=== PATIENT | female | born 1985 | race Two or more races ===

== ENCOUNTER 2024-11-04 12:34 | Emergency (ER) | payer BC, SELFPAY ==
[2024-11-04 12:54] VITALS: BP 136/93; PULSE 108; RESP 18; TEMP 37.1; O2SAT 99; BMI 25.2
--- NOTE | 2024-11-04 13:07 | EDNOTE_ITS ---
ED Alcohol RME/HPI General Chief Complaint: Alcohol Stated Complaint: wants to detox, heavy drinker Time Seen by Provider: 11/04/24 12:52 Arrival date/time: 11/04/24 12:34 RME / HPI RME / HPI narrative: 38-year-old female patient with significant history of chronic alcoholism, came in evaluation for request of alcohol detoxification. Patient has been on alcohol detoxification center twice, and according to her it does not work because every time she gets out she started drinking again. Patient is drinking tequila and whiskey heavy every day. Last drink few hours ago. Currently patient is not having any symptoms. Is not having any symptoms of withdrawal according to her. She called the alcohol intoxication center and was advised to go to the emergency room for alcohol detoxification. Denies any homicidal or suicidal ideation. Related Data Allergies Allergy/AdvReac Type Severity Reaction Status Date / Time No Known Allergies Allergy Verified 11/04/24 12:40 Review of Systems Review of Systems Narrative Review of Systems: Review of system reviewed and within normal limits except mentioned in HPI ED Exam Narrative Physical exam: VITAL SIGNS: Reviewed. GENERAL APPEARANCE: Alert and interactive, follows commands, no acute distress, HEAD AND FACE: Non-traumatic. ENT: PERRL, pink conjunctivitis, eyelid no trauma, Mucous membrane moist. NECK: Supple, nontender, no nuchal rigidity. CHEST: No tenderness, no crepitus, no paradoxical movement, no retractions. LUNGS: Clear, well ventilated, symmetric, no rales, no wheezing, no ronchi, no stridor, good breath sounds bilaterally. HEART: Regular rate, regular rhythm, no murmur, no gallops. ABDOMEN: Soft, positive bowel sounds, nondistended, no guarding, nontender, no rebound, no masses, RECTAL: Deferred. GENITAL: Deferred. NEUROLOGICAL: Gross motor function intact sensory function intact, Appropriate for age. MUSCULOSKELETAL: low back nontender, full range of motion. EXTREMITIES: Nontender, full range of motion. SKIN: Color pink, dry, no rash, no lacerations, no abrasions, no contusions. LYMPHATICS: Deferred. Course Quality Measures none Vital Signs Vital signs: Vital Signs Temperature 98.8 F 11/04/24 12:54 Pulse Rate 108 H 11/04/24 12:54 Respiratory Rate 18 11/04/24 12:54 Blood Pressure 136/93 H 11/04/24 12:54 Pulse Oximetry (%) 99 11/04/24 12:54 Oxygen Delivery Method Room Air 11/04/24 12:54 Discharge Plan Plan Patient Disposition: HOME (Self Care) Discharge Disposition comment: Stable Problem List Clinical Impression: Alcoholism, chronic Patient/Caregiver Discharge Instructions Discharge Activity: activity as tolerated Education Materials: Alcohol Addiction Additional Instructions: Thank you for the opportunity for serving you today. You are stable for discharged . You are advised to: Follow-up with your PCP in 1 to 2 days Return to ED for worsening of symptoms, alcohol withdrawal symptoms, Increase oral fluids Please try to stop drinking alcohol Print Language: Japanese Stand Alone Forms: [facility] [place] [employer] Award Info., Patient Portal Info Letter Alcohol MDM Narrative MDM Narrative: 38-year-old female patient with significant history of chronic alcoholism, came in evaluation for request of alcohol detoxification. Patient has been on alcohol detoxification center twice, and according to her it does not work because every time she gets out she started drinking again. Patient is drinking tequila and whiskey heavy every day. Last drink few hours ago. Currently patient is not having any symptoms. Is not having any symptoms of withdrawal according to her. She called the alcohol intoxication center and was advised to go to the emergency room for alcohol detoxification. Denies any homicidal or suicidal ideation. Plan of care discussed with the family and I told him that there is no reason for us to admit her because she is not showing any sign of alcohol withdrawal. And we do not usually admit patient for alcohol detoxification. Patient was advised to go to detoxification center for planned detoxification. She is stable for discharge home. Patient data External records reviewed:: None Clinical information provided by:: patient Social determinants that could affect healthcare access:: alcohol use Patient has the following chronic illnesses:: Chronic alcoholism How is presenting disease/condition affected by chronic disease/condition?: exacerbated by Evaluation data The following diagnostics were reviewed and interpreted by me:: other (specify) Lab and/or radiology exams considered but not ordered:: None Interpretation Summary: None Medications / Prescriptions Medications or Prescriptions considered but not ordered:: None Medication administrations:: None Consultations Consultation(s) initiated? (list below): No Diagnosis Differential diagnosis alcohol: alcohol intoxication and alcohol withdrawal syndrome Most likely diagnosis given after review of the tests above:: Chronic alcoholism Admission Indicated Admission indicated?: not indicated Admission Request Was there a request for admission?: No Disposition Plan Disposition Plan: Discharge Discharge Attestation Discharge Attestation: The patient and all family members were given an opportunity to ask questions and understood the discharge instructions. Discharge instructions specifically effects, indications for sooner follow up or return to the emergency department, and the expected course of current diagnosis. Was also advised to return to emergency room for signs of alcohol withdrawal symptoms like anxiety, tremors, vomiting and not feeling well. Patient condition: Stable
== END 2024-11-04 13:00 | disposition home or self-care (01) ==
LOC: SERX 13:58
PROVIDERS: Emergency Provider Emergency Medicine
DX: F10.90 Alcohol use, unspecified, uncomplicated (principal)
CPT/HCPCS: 99284